=== PATIENT | female | born 1980 | race Two or more races ===

== ENCOUNTER 2023-04-20 01:54 | Emergency (ER) | payer OTHER ==
[~2023-04-20] VITALS: Ht 170.2 cm; Wt 133.9 kg
[2023-04-20 02:16] VITALS: BP 143/94
[2023-04-20 03:17] LABS: Urine Bacteria FEW /hpf (None Seen); Urine Blood Negative /uL (Negative); Urine Mucus FEW (None Seen); Urine Specific Gravity 1.033 (1.001-1.035); Urine WBC 40 /hpf (0 - 5)
== END 2023-04-20 06:30 | disposition left against medical advice (07) ==
LOC: ER 01:54
DX: R42 Dizziness and giddiness (principal); Z76.0 Encounter for issue of repeat prescription; Z53.21 Procedure and treatment not carried out due to patient leaving prior to being seen by health care provider
CPT/HCPCS: 81001